=== PATIENT | female | born 1940 | race Two or more races ===

== ENCOUNTER 2019-10-26 07:30 | Inpatient (IN) | payer OTHER ==
[~2019-10-26] VITALS: Ht 160 cm; Wt 79.8 kg
[2019-10-26] MEDS ORDERED: COZAAR50 MG PO (08:59)
[2019-10-26] MEDS ORDERED: SINGULAIR10 MG PO (08:59)
[2019-10-26] MEDS ORDERED: SYNTHROID88 MCG PO (08:59)
[2019-10-26] MEDS ORDERED: JANUVIA100 MG PO (09:00)
[2019-10-26] MEDS ORDERED: SIMVASTATIN20 MG PO (09:00)
[2019-10-26] MEDS ORDERED: BREO PF (09:02)
[2019-10-26] MEDS ORDERED: ASPIRIN PO (09:02)
[2019-10-26] MEDS ORDERED: ALBUTER (09:03)
[2019-10-31] MEDS ORDERED: BREO ELLIPTA 21 EACH IH (08:17)
[2019-10-31] MEDS ORDERED: TUMS300 MG (08:18)
[2019-10-31] MEDS ORDERED: VICKS VAPORUB170 G2 (08:18)
[2019-10-31] MEDS ORDERED: EMERGEN-C 1,01000 MG (08:20)
[2019-10-31] MEDS ORDERED: ADULT LOW DOSE81 M1 (08:21)
[2019-10-31] MEDS ORDERED: PROVENTIL HFA6.7 GM (08:22)
[2019-11-01] MEDS ORDERED: INTEGRA PLUS C1 EACH PO (08:02)
[2019-11-01] MEDS ORDERED: ASA325 M1 PO (08:03)
[2019-11-01] MEDS ORDERED: ACETAMINOPHEN-1 EAC2 PO (08:03)
[2019-11-01] MEDS ORDERED: BACTRIM DS TAB1 EACH PO (08:03)
== END 2019-11-01 10:11 | disposition home or self-care (01) | DRG 483 ==
LOC: SURH 10-31 05:45 → O/R 10-31 05:45 → SURH 10-31 07:00
PROVIDERS: ADMIT Orthopaedic Surgery Sports Medicine; ATTEND Orthopaedic Surgery Sports Medicine
PROC: 0RCJ0ZZ Extirpation of Matter from Right Shoulder Joint, Open Approach (ICD-10-PCS; 2019-10-31)
PROC: 30233N1 Transfusion of Nonautologous Red Blood Cells into Peripheral Vein, Percutaneous Approach (ICD-10-PCS; 2019-10-31)
PROC: 0RRJ0JZ Replacement of Right Shoulder Joint with Synthetic Substitute, Open Approach (ICD-10-PCS; principal; 2019-10-31 07:00)
DX: M19.011 Primary osteoarthritis, right shoulder (principal); D62 Acute posthemorrhagic anemia; I10 Essential (primary) hypertension; E11.9 Type 2 diabetes mellitus without complications